=== PATIENT | male | born 1930 | race Hispanic/Latino ===

== ENCOUNTER 2018-05-06 16:20 | Inpatient (IN) | payer MEDICARE ==
[2018-05-06 16:37] VITALS: RESP 18
--- NOTE | 2018-05-06 17:11 | ED PDOC ---
Arrival/HPI - General Historian: Patient - History of Present Illness Narrative History of Present Illness (Text): Pt is a 87 yr old male with PMH HTN who presents with a large left distal posterior forearm skin tear after a fall in his bathroom this past friday. He states that he was seen at [facility] that day and discharged after normal arm Xrays and head CT. He denies any LOC or head injury at the time of the fall. he states that upon his presentation to [facility] his arm was bandaged and he was told it would heal on its own. pt states that today when Dr. Christensen came to his h ouse to see him he was unable to stop the arm from oozing and instructed him to come to the hospital for further evaluation. Patient otherwise any headache, chest pain, shortness of breath, abdominal pain, n/v, f/c, and extremity pain other than in his left arm. Pt additionally denies any sensory or motor deficits in the left hand or arm. 05/06/18 17:30 Front/Back of Body, Lg (Color): 1 - Large skin tear with necrotic skin flap Time/Duration: Prior to Arrival (4 days ) Symptom Onset: Sudden (post fall) Symptom Course: Unchanged Activities at Onset: Other (post fall) Associated Symptoms (Text): erythema and edema of the left arm distal to the skin tear 05/06/18 18:42 <Amanda Blanca - Last Filed: 05/06/18 18:46> <Pratik Lopez - Last Filed: 05/06/18 18:54> - General Chief Complaint: Abnormal Skin Integrity Time Seen by Provider: 05/06/18 16:55 Past Medical History - Provider Review Nursing Documentation Reviewed: Yes - Cardiac Hx Hypertension: Yes - Renal Hx Kidney Stones: Yes - Psychiatric Hx Substance Use: No <Amanda Blanca - Last Filed: 05/06/18 18:46> Family/Social History - Physician Review Nursing Documentation Reviewed: Yes Family/Social History: Unknown Family HX Smoking Status: Former Smoker Hx Alcohol Use: No Hx Substance Use: No <Amanda Blanca - Last Filed: 05/06/18 18:46> Allergies/Home Meds <Amanda Blanca - Last Filed: 05/06/18 18:46> <Pratik Lopez - Last Filed: 05/06/18 18:54> Allergies/Adverse Reactions: Allergies No Known Allergies Allergy (Verified 05/06/18 16:30) Home Medications: Home Meds Medication Instructions Recorded Confirmed Atenolol 50 mg PO DAILY 05/06/18 05/06/18 amLODIPine [Norvasc] 5 mg PO DAILY 05/06/18 05/06/18 Review of Systems - Physician Review All systems were reviewed & negative as marked: Yes - Review of Systems Constitutional: Weight Change (endorses unknown amount of weight loss since his ). absent: Fatigue, Fevers, Night Sweats Respiratory: absent: SOB, Cough Cardiovascular: absent: Chest Pain Gastrointestinal: absent: Abdominal Pain Musculoskeletal: absent: Neck Pain Skin: Other (large skin tear) Neurological: absent: Headache, Dizziness, Gait Changes <Amanda Blanca - Last Filed: 05/06/18 18:46> Physical Exam Vital Signs Reviewed: Yes Vital Signs Temp Pulse Resp BP Pulse Ox 05/06/18 16:27 98.1 F 64 18 154/57 H 100 Temperature: Afebrile Pulse: Regular Respiratory Rate: Normal Appearance: Positive for: Well-Appearing, Non-Toxic, Comfortable, Cachectic Pain Distress: None Mental Status: Positive for: Alert and Oriented X 3 - Systems Exam Head: Present: Atraumatic, Normocephalic Extroacular Muscles: Present: EOMI Mouth: Present: Moist Mucous Membranes Respiratory/Chest: Present: Clear to Auscultation. No: Respiratory Distress, Accessory Muscle Use Cardiovascular: Present: Regular Rate and Rhythm, Normal S1, S2 Abdomen: No: Tenderness, Distention, Peritoneal Signs, Guarding Upper Extremity: Present: Edema, Normal ROM, NORMAL PULSES, Tenderness (over skin tear), Erythema, Neurovascularly Intact, Capillary Refill < 2s, Other (large 13 cm x 4 cm skin tear with necrotic skin flap). No: Cyanosis, Deformity Lower Extremity: Present: Edema (1+ pitting) Neurological: Present: GCS=15, CN II-XII Intact, Speech Normal Skin: Present: Warm, Erythematous (distal left upper extremity), Other (13 cm by 4 cm skin tear with necrotic overlying skin flap, oozing) Psychiatric: Present: Alert, Oriented x 3 <Amanda Blanca - Last Filed: 05/06/18 18:46> Vital Signs Temp Pulse Resp BP Pulse Ox 05/06/18 16:27 98.1 F 64 18 154/57 H 100 <Pratik Lopez - Last Filed: 05/06/18 18:54> Medical Decision Making ED Course and Treatment: impression: large skin tear LUE Plan: labs Dr. Christensen called Dr. Christensen requesting surgical and ID consult (Halle) admit for IV abx 1 dose IV Clindamycin 05/06/18 18:44 - Lab Interpretations Narrative Lab Interpretation (Text): INR normal 1.07 PT 12.2 PTT 27.7 05/06/18 18:49 Interpretation: Abnormal lab values (NA 131 Cl 96, Hgb 12.4 hct 36.5) <Amanda Blanca - Last Filed: 05/06/18 18:46> - Lab Interpretations Lab Results: 05/06/18 17:50 05/06/18 17:50 Lab Results 05/06/18 17:50: Sodium 131 L, Potassium 4.3, Chloride 96 L, Carbon Dioxide 30, Anion Gap 9 L, BUN 15, Creatinine 0.7 L, Est GFR ( Amer) > 60, Est GFR (Non-Af Amer) > 60, Random Glucose 99, Calcium 9.1, Phosphorus 3.6, Magnesium 1.9, Total Bilirubin 0.6, AST 36, ALT 25, Alkaline Phosphatase 85, Total Protein 7.1, Albumin 3.7, Globulin 3.4, Albumin/Globulin Ratio 1.1 05/06/18 17:50: PT 12.2, INR 1.07, APTT 27.7 05/06/18 17:50: WBC 7.3, RBC 3.98, Hgb 12.4 L, Hct 36.5 L, MCV 91.7, MCH 31.2, MCHC 34.0, RDW 13.3, Plt Count 233, MPV 8.7, Gran % 58.0, Lymph % (Auto) 24.0, [place] % (Auto) 13.0 H, Eos % (Auto) 4.6, Baso % (Auto) 0.4, Gran # 4.24, Lymph # (Auto) 1.8, [place] # (Auto) 1.0 H, Eos # (Auto) 0.3, Baso # (Auto) 0.03 - Medication Orders Current Medication Orders: Discontinued Medications Clindamycin Phosphate (Clindamycin 300 Mg/50 Ml-D5w) 300 mg in 50 mls @ 50 mls/hr IV STAT STA; Protocol Stop: 05/06/18 18:44 Last Admin: 05/06/18 17:55 Dose: 50 mls/hr eMAR Start Stop Document 05/06/18 17:55 EWO (Rec: 05/06/18 17:56 EWO [id number]) Intravenous Solution Start Date 05/06/18 Start Time 17:56 End Date 05/06/18 End time 18:56 Total Infusion Time 60 <Pratik Lopez - Last Filed: 05/06/18 18:54> Disposition/Present on Arrival - Present on Arrival Any Indicators Present on Arrival: Yes History of DVT/PE: No History of Uncontrolled Diabetes: No Urinary Catheter: Yes History of Decub. Ulcer: No History Surgical Site Infection Following: None - Disposition Patient Plan: Admission <BlancaAmanda - Last Filed: 05/06/18 18:46> - Present on Arrival Any Indicators Present on Arrival: No History of DVT/PE: No History of Uncontrolled Diabetes: No Urinary Catheter: Yes History of Decub. Ulcer: No - Disposition Have Diagnosis and Disposition been Completed?: Yes Disposition Time: 18:53 Patient Plan: Admission <Pratik Lopez - Last Filed: 05/06/18 18:54> - Disposition Diagnosis: Cellulitis, Hyponatremia Disposition: HOSPITALIZED Condition: GOOD Discharge Instructions (ExitCare): Cellulitis (ED) Referrals: Zen Christensen DO [Primary Care Provider] - Follow up with primary Forms: [employer] (Croatian)
[2018-05-06] MEDS ORDERED: Clindamycin in D5W 300 MG/50 ML BAG IV STA (17:45)
[2018-05-06 18:01] LABS: BASO # 0.03 K/mm3 (0.0-2.0); BASO % 0.4 % (0.0-3.0); EOS # 0.3 (0.0-0.7); EOS % 4.6 % (1.5-5.0); GRAN # 4.24 (1.4-6.5); HEMOGLOBIN 12.4 g/dL (14.0-18.0); LYMPH # 1.8 (1.2-3.4); MEAN CELL VOLUME 91.7 fl (80.0-105.0); MEAN CORPUSCULAR HEMOGLOBIN 31.2 pg (25.0-35.0); MEAN PLATELET VOLUME 8.7 fl (7.0-11.0); RBC 3.98 10^6/uL (3.5-6.1); RED CELL DISTRIBUTION WIDTH 13.3 % (11.5-14.5); WHITE BLOOD COUNT 7.3 10^3/uL (4.5-11.0)
[2018-05-06 18:09] LABS: INR 1.07; PARTIAL THROMBOPLASTIN TIME 27.7 Seconds (25.1-36.5); PROTHROMBIN TIME 12.2 SECONDS (9.4-12.5)
[2018-05-06 18:13] LABS: ALB/GLOB RATIO 1.1 (1.1-1.8); ALBUMIN 3.7 g/dL (3.0-4.8); ALT/SGPT 25 U/L (7-56); AST/SGOT 36 U/L (17-59); BLOOD UREA NITROGEN 15 mg/dL (7-21); CALCIUM 9.1 mg/dL (8.4-10.5); GFR NON-AFRICAN AMERICAN > 60
--- NOTE | 2018-05-06 19:37 | CP.PCM.CON ---
History of Present Illness - History of Present Illness History of Present Illness: Surgery: Dr. Patel CC: LUE skin tear HPI: 87M w. pmh of HTN presents for evaluation of L forearm skin tear. Pt states that 4 days ago he sustained a mechanical fall in his bathroom and was evaluated at [facility] [place] where Xray of arm and CT-H were performed, both were negative and pt was D/C. Pt was seen at his home today by Dr. Christensen and had complaints that his arm was "oozing." Pt was advised to go to ED for further evaluation. In ED pt has complaints of mild pain over the site of injury. He denies any numbness/parethesias. No weakness. PMH: HTN PSH: none Meds: MAR reviewed NKDA Social: Former smoker, to ETOH/drugs Fhx: non-contributory Review of Systems - Review of Systems All systems: reviewed and no additional remarkable complaints except (HPI) Past Patient History - Past Social History Smoking Status: Former Smoker - CARDIAC Hx Hypertension: Yes - RENAL Hx Kidney Stones: Yes - PSYCHIATRIC Hx Substance Use: No - SURGICAL HISTORY Hx Surgeries: No Meds Allergies/Adverse Reactions: Allergies Allergy/AdvReac Type Severity Reaction Status Date / Time No Known Allergies Allergy Verified 05/06/18 16:30 Physical Exam - Constitutional Appears: Non-toxic, No Acute Distress - Head Exam Head Exam: ATRAUMATIC, NORMOCEPHALIC - Eye Exam Eye Exam: EOMI - ENT Exam ENT Exam: Mucous Membranes Moist - Neck Exam Neck exam: Positive for: Full Rom - Respiratory Exam Respiratory Exam: NORMAL BREATHING PATTERN. absent: Accessory Muscle Use, Respiratory Distress - Cardiovascular Exam Cardiovascular Exam: REGULAR RHYTHM - GI/Abdominal Exam GI & Abdominal Exam: Soft. absent: Tenderness - Extremities Exam Extremities exam: Negative for: calf tenderness, pedal edema - Expanded Upper Extremities Exam Left Forearm Wrist exam: abrasion (Skin tear dorsal aspect of L forearm ~15x5cm with surrounding erythema and serosang fluid noted on wound bed) Neuro motor exam: finger 2-5 abduction intact, thumb abduction, thumb IP flexion intact, thumb opposition intact, wrist extension intact Vascular exam: radial pulse, normal capillary refill - Neurological Exam Neurological exam: Normal Gait, Oriented x3 - Psychiatric Exam Psychiatric exam: Normal Affect, Normal Mood Results - Vital Signs Recent Vital Signs: Last Vital Signs Temp 98.1 F 05/06/18 16:27 Pulse 64 05/06/18 16:27 Resp 18 05/06/18 16:27 BP 154/57 H 05/06/18 16:27 Pulse Ox 100 05/06/18 16:27 - Labs Result Diagrams: 05/06/18 17:50 05/06/18 17:50 Labs: Laboratory Results - last 24 hr 05/06/18 05/06/18 05/06/18 17:50 17:50 17:50 WBC 7.3 RBC 3.98 Hgb 12.4 L Hct 36.5 L MCV 91.7 MCH 31.2 MCHC 34.0 RDW 13.3 Plt Count 233 MPV 8.7 Gran % 58.0 Lymph % (Auto) 24.0 [place] % (Auto) 13.0 H Eos % (Auto) 4.6 Baso % (Auto) 0.4 Gran # 4.24 Lymph # (Auto) 1.8 [place] # (Auto) 1.0 H Eos # (Auto) 0.3 Baso # (Auto) 0.03 PT 12.2 INR 1.07 APTT 27.7 Sodium 131 L Potassium 4.3 Chloride 96 L Carbon Dioxide 30 Anion Gap 9 L BUN 15 Creatinine 0.7 L Est GFR ( Amer) > 60 Est GFR (Non-Af Amer) > 60 Random Glucose 99 Calcium 9.1 Phosphorus 3.6 Magnesium 1.9 Total Bilirubin 0.6 AST 36 ALT 25 Alkaline Phosphatase 85 Total Protein 7.1 Albumin 3.7 Globulin 3.4 Albumin/Globulin Ratio 1.1 Assessment & Plan - Assessment and Plan (Free Text) Assessment: 87M w. skin tear L forearm and cellulitis -Daily dressing changes w. silvadene and optifoam dressings -abx -No surgical intervention at this time -d/w attending Vineetmaitis PGY4
[2018-05-06] MEDS ORDERED: Sodium Chloride 0.9% 100 ML IV STA (20:08)
[2018-05-07 04:25] VITALS: BMI 20.3
--- NOTE | 2018-05-07 09:08 | CP.PCM.PN ---
Subjective - Date & Time of Evaluation Date of Evaluation: 05/07/18 Time of Evaluation: 09:03 - Subjective Subjective: Yair Franco, PGY1 Surgery Progress Note for Dr. Patel Patient was seen and examined at bedside. Denies cp, sob, pain at the left extremity. No adverse overnight events. Vital signs stable. Dressing was changed today, silvadene was applied and left forearm was wrapped in JACQUELINE bandage. Objective - Vital Signs/Intake and Output Vital Signs (last 24 hours): Temp Pulse Resp BP Pulse Ox 98.5 F 56 L 18 128/67 96 05/07/18 06:00 05/07/18 06:00 05/07/18 06:00 05/07/18 06:00 05/07/18 06:00 Intake and Output: 05/07/18 05/07/18 06:59 18:59 Intake Total 250 Balance 250 - Medications Medications: Current Medications Silver Sulfadiazine (Silvadene 1% 25 Gm) 0 gm TP DAILY NAY - Labs Labs: 05/06/18 17:50 05/06/18 17:50 PT 12.2 SECONDS (9.4-12.5) 05/06/18 17:50 INR 1.07 05/06/18 17:50 APTT 27.7 Seconds (25.1-36.5) 05/06/18 17:50 - Constitutional Appears: No Acute Distress - Head Exam Head Exam: ATRAUMATIC, NORMAL INSPECTION, NORMOCEPHALIC - Eye Exam Eye Exam: EOMI, Normal appearance - ENT Exam ENT Exam: Mucous Membranes Moist - Respiratory Exam Respiratory Exam: Clear to Ausculation Bilateral. absent: Rales, Rhonchi, Wh eezes - Cardiovascular Exam Cardiovascular Exam: RRR - GI/Abdominal Exam GI & Abdominal Exam: Soft, Normal Bowel Sounds. absent: Tenderness - Extremities Exam Extremities Exam: Full ROM, Normal Capillary Refill Additional comments: Skin tear at the dorsal aspect of the left forearm, approximately 15x5cm with serosanguinous fluid noted. Silvadene applied, dressing placed over with JACQUELINE bandage in place. Distal pulses and motor responses of the hand intact. - Neurological Exam Neurological Exam: Alert, Oriented x3 - Psychiatric Exam Psychiatric exam: Normal Affect, Normal Mood - Skin Skin Exam: Dry, Intact, Normal Color, Warm Assessment and Plan - Assessment and Plan (Free Text) Assessment: 87M with skin tear L forearm and cellulitis Plan: - continue daily dressing changes with silvadene and optifoam dressings - c/w antibiotics as per ID recs - No surgical intervention at this time - Further recommendations as per Dr. Patel
[2018-05-07 09:43] LABS: BLOOD UREA NITROGEN 11 mg/dL (7-21); CALCIUM 8.9 mg/dL (8.4-10.5); GFR NON-AFRICAN AMERICAN > 60
[2018-05-07] MEDS ORDERED: Sodium Chloride 0.45% 1,000 ML IV SCH (10:00)
[2018-05-07] MEDS: Silver Sulfadiazine 1% Cream (25 gm) TP SCH (10:15)
--- NOTE | 2018-05-07 11:31 | CP.PCM.APN ---
Subjective - Date & Time of Evaluation Date of Evaluation: 05/07/18 Time of Evaluation: 11:28 - Subjective Subjective: Pt seen and examined at bedside. He is in no acute distress. Objective - Vital Signs/Intake and Output Vital Signs (last 24 hours): Temp Pulse Resp BP Pulse Ox 98.5 F 56 L 18 144/63 96 05/07/18 06:00 05/07/18 11:24 05/07/18 06:00 05/07/18 11:24 05/07/18 06:00 Intake and Output: 05/07/18 05/07/18 06:59 18:59 Intake Total 250 Balance 250 - Medications Medications: Current Medications Amlodipine Besylate (Norvasc) 5 mg PO DAILY [facility] Last Admin: 05/07/18 10:52 Dose: 5 mg Atenolol (Tenormin) 50 mg PO DAILY [facility] Last Admin: 05/07/18 11:24 Dose: Not Given Sodium Chloride (Sodium Chloride 0.45%) 1,000 mls @ 40 mls/hr IV .Q24H [facility] Last Admin: 05/07/18 10:40 Dose: 40 mls/hr Silver Sulfadiazine (Silvadene 1% 25 Gm) 0 gm TP DAILY [facility] Last Admin: 05/07/18 10:15 Dose: 3 gm - Labs Labs: 05/06/18 17:50 05/07/18 08:20 PT 12.2 SECONDS (9.4-12.5) 05/06/18 17:50 INR 1.07 05/06/18 17:50 APTT 27.7 Seconds (25.1-36.5) 05/06/18 17:50 - Constitutional Appears: Well, No Acute Distress - Head Exam Head Exam: NORMAL INSPECTION - Eye Exam Eye Exam: Normal appearance - ENT Exam ENT Exam: Mucous Membranes Moist - Neck Exam Neck Exam: Full ROM - Respiratory Exam Respiratory Exam: Clear to Ausculation Bilateral, NORMAL BREATHING PATTERN - Cardiovascular Exam Cardiovascular Exam: REGULAR RHYTHM, +S1, +S2 - GI/Abdominal Exam GI & Abdominal Exam: Soft, Normal Bowel Sounds - Rectal Exam Rectal Exam: Deferred - Exam Additional comments: +sommers w/ clear yellow urine - Extremities Exam Additional comments: L forearm with wound, no active drainage or foul odor noted. - Neurological Exam Neurological Exam: Alert, Awake, Oriented x3 Assessment and Plan - Assessment and Plan (Free Text) Assessment: Pt is an 87 y.o. male with pmhx of HTN presented in ED due to large L distal p osterior forearm skin tear w/ oozing. Plan: Local wound care to L forearm wound per surgery recs Surgery, ID and Uro (sommers eval) on consult Meds per MAR Physical therapy pending Will continue to follow
--- NOTE | 2018-05-07 12:43 | HP ---
DATE OF EXAM: 05/07/2018 HISTORY OF PRESENT ILLNESS: I did a house call on Kyler yesterday, he was in the emergency room at [facility] where he fell on the bathroom. His left arm has got at least of 27 cm X 10 cm gash with skin covering it. They bandaged it and sent him home and came to the house, took about 20 minutes to get this eschar bandage of his left arm and was bleeding the whole time. I felt he should have gone to the emergency room. He did not want to go, but when I told him he was bleeding too much, I said he have to go, we cannot stop the bleeding at his house and he finally agreed. We called 911, got him to [facility] for his left arm huge skin tear from a fall. He did not lose consciousness and a left arm looked cellulitic, oozing blood, findings to have some cautery and a large area of skin has to come off. He is 87-year-old white male known from many years. He has got a left arm skin abrasion and avulsion and bleeding. PAST MEDICAL HISTORY: Hypertension. He has a Ariza catheter in. He has had kidney stones. FAMILY HISTORY: Unknown family history. SOCIAL HISTORY: Former smoker. No alcohol. No drinking. ALLERGIES: NO KNOWN DRUG ALLERGIES. MEDICATIONS: He is on atenolol and Norvasc. He has very difficulty walking, walks with the walker, very weak. I tried to do physical therapy in his house in the past, he refused but I think he needs it now that he is falling. REVIEW OF SYSTEMS: He has lost weight since his , he is fatigued. His left arm is soaked through with bleeding. No shortness of breath or cough. No chest pain or palpitations. No abdominal pain, nausea, vomiting or constipation. No diarrhea. No back pain. No neck pain. He is got a large left arm skin tear, the entire forearm. No headache. No dizziness. PHYSICAL EXAMINATION: GENERAL: He is well appearing, nontoxic and comfortable, but he is weak, he is walking very slowly, he is very weak getting up from a chair. I think he needs [facility] TCU. Alert and oriented x3. VITAL SIGNS: He has 98.1 temp, 64 pulse, 18 respiratory rate, 164/57 blood pressure and 100% O2 sat. HEENT: Head is atraumatic and normocephalic. Extraocular muscles are intact. Throat is dry. NECK: Supple. HEART: Regular rate. Normal, S1 and S2. LUNGS: Decreased breath sounds, but clear to auscultation. ABDOMEN: Soft and nontender. Positive bowel sounds. No guarding. No rebound or CVA tenderness. EXTREMITIES: No edema. There is a large 13 X 4 cm skin flap that is necrotic and bleeding. Trace edema of the arm. NEUROLOGIC: GCS is 15. Cranial nerves II through XII grossly intact. Normal speech. The left arm is also warm, it looks infected. Alert and oriented x3. LYMPHS: Thyroid midline. No palpable lymphadenopathy. LABORATORY DATA: He had multiple tests done. He has 7.3 white count, 12.4 hemoglobin, 36.5 hematocrit and 233 platelets. INR is 1.07. He has a sodium 132, potassium 4.4, BUN is 11, creatinine is 0.6, GFR is greater than 60, sugar is 123, calcium is 8.9, phosphorous 3.6, magnesium 1.9, total bilirubin is 0.6, AST is 36, ALT is 25, alk phos 85 and total protein 7.1. IMPRESSION AND PLAN: He will have a consult with surgery to remove that skin. Infectious Disease, IV fluids, clindamycin, silver sulfadiazine cream, back on his amlodipine, Tenormin, physical therapy, [facility] versus TCU and he has got multiple issues in the left arm large avulsion with bleeding looks cellulitic, fall. Zen Christensen DO MTDD
--- NOTE | 2018-05-07 15:25 | CON ---
DATE: 05/07/2018 The patient is in bed, seen earlier today in room 576, bed 2. CHIEF COMPLAINT: Left arm injury times several days. HISTORY OF PRESENT ILLNESS: This is an 87-year-old male, who has past medical history for hypertension, ex-smoker, history of kidney stones, who is admitted through the emergency room because after a fall he has developed arm laceration. This occurred 4 days ago, fall. He did not have any head injury, he was not unconscious, and he did not have any fevers, any chills. No nausea. No vomiting. No chest pain or abdominal pain. REVIEW OF SYSTEMS: Reveals the patient has 12-point review systems performed. PAST MEDICAL HISTORY: Significant for hypertension, kidney stones, and ex-smoker. PAST SURGICAL HISTORY: States he has not had any surgery in the past. ALLERGIES: THE PATIENT HAS NO KNOWN ALLERGIES. MEDICATIONS: Medications at home include atenolol and amlodipine. SOCIAL HISTORY: He lives with his son, who is 61 years old, and he has no travel. PHYSICAL EXAMINATION: GENERAL: The patient is in bed, answering questions. He is awake and alert. Mental status is good. VITAL SIGNS: Temperature of 98, heart rate of 59, respiratory rate of 18, blood pressure is 130/60. HEENT: Examination of HEENT is unremarkable. NECK: Supple. LUNGS: Have decreased breath sounds. HEART: Normal S1, S2. ABDOMEN: Soft. EXTREMITIES: Examination of the left arm reveals a significant laceration to his necrotic tissue and lower so aspect of his arm, and no evidence of infection. LABORATORY DATA: Laboratory examination reveals a white count of 7.3, hemoglobin of 12. Chemistries are BUN of 11, creatinine of 0.6. Microbiology is pending. ASSESSMENT AND PLAN: This is an 87-year-old male with left arm laceration. No indication for antibiotics. Local wound care. Close monitoring. He does have a potential of becoming superinfection, but it is not so at this time. We will follow with you. Ed Griggs MD
[2018-05-08 07:37] LABS: MEAN CELL VOLUME 90.8 fl (80.0-105.0); MEAN CORPUSCULAR HEMOGLOBIN 30.6 pg (25.0-35.0); MEAN CORPUSCULAR HGB CONC 33.7 g/dl (31.0-37.0); MEAN PLATELET VOLUME 8.9 fl (7.0-11.0); RBC 4.25 10^6/uL (3.5-6.1); RED CELL DISTRIBUTION WIDTH 13.1 % (11.5-14.5); WHITE BLOOD COUNT 6.5 10^3/uL (4.5-11.0)
--- NOTE | 2018-05-08 07:55 | PCM.URO ---
Urology Progress Note - Objective Lab Studies: Reviewed (futher plans to follow when we have further information thanks) Lab Results Last 24 Hours: Laboratory Results - last 24 hr 05/07/18 05/08/18 08:20 07:00 WBC 6.5 RBC 4.25 Hgb 13.0 L Hct 38.6 L MCV 90.8 MCH 30.6 MCHC 33.7 RDW 13.1 Plt Count 237 MPV 8.9 Sodium 132 Potassium 4.4 Chloride 99 Carbon Dioxide 27 Anion Gap 11 BUN 11 Creatinine 0.6 L Est GFR ( Amer) > 60 Est GFR (Non-Af Amer) > 60 Random Glucose 123 H Calcium 8.9 Intake & Output: Intake & Output 05/07/18 05/08/18 05/08/18 18:59 06:59 18:59 Intake Total 600 180 Output Total 700 500 Balance -100 -320 Intake: IV 400 Right Forearm 400 Oral 200 180 Output: Urine 700 500 Urine, Voided 700 500 Vital Signs: Vital Signs - 24 hr 05/07/18 05/07/18 05/07/18 10:52 11:24 14:00 Temperature 99.4 F Pulse Rate 56 L 56 L 53 L Respiratory 18 Rate Blood Pressure 144/63 144/63 120/54 L O2 Sat by Pulse Oximetry 05/07/18 22:34 Temperature 99.7 F H Pulse Rate 54 L Respiratory 18 Rate Blood Pressure 114/57 L O2 Sat by Pulse 95 Oximetry
[2018-05-08 08:07] LABS: ALBUMIN 3.4 g/dL (3.0-4.8); ALT/SGPT 23 U/L (7-56); AST/SGOT 35 U/L (17-59); BLOOD UREA NITROGEN 17 mg/dL (7-21); CALCIUM 8.8 mg/dL (8.4-10.5); GFR NON-AFRICAN AMERICAN > 60
--- NOTE | 2018-05-08 08:56 | CP.PCM.PN ---
Subjective - Date & Time of Evaluation Date of Evaluation: 05/08/18 Time of Evaluation: 08:49 - Subjective Subjective: Yair Franco, PGY1 Surgery Progress Note for Dr. Patel Patient was seen and examined at bedside this morning. Vital signs stable. Patient denies n/v/d, fevers, chills. No adverse overnight events. Dressing was changed. Objective - Vital Signs/Intake and Output Vital Signs (last 24 hours): Temp Pulse Resp BP Pulse Ox 99.7 F H 54 L 18 114/57 L 95 05/07/18 22:34 05/07/18 22:34 05/07/18 22:34 05/07/18 22:34 05/07/18 22:34 Intake and Output: 05/08/18 05/08/18 06:59 18:59 Intake Total 180 Output Total 500 Balance -320 - Medications Medications: Current Medications Amlodipine Besylate (Norvasc) 5 mg PO DAILY [facility] Last Admin: 05/07/18 10:52 Dose: 5 mg Atenolol (Tenormin) 50 mg PO DAILY [facility] Last Admin: 05/07/18 11:24 Dose: Not Given Sodium Chloride (Sodium Chloride 0.45%) 1,000 mls @ 40 mls/hr IV .Q24H [facility] Last Admin: 05/07/18 10:40 Dose: 40 mls/hr Silver Sulfadiazine (Silvadene 1% 25 Gm) 0 gm TP DAILY [facility] Last Admin: 05/07/18 10:15 Dose: 3 gm - Labs Labs: 05/08/18 07:00 05/08/18 07:00 PT 12.2 SECONDS (9.4-12.5) 05/06/18 17:50 INR 1.07 05/06/18 17:50 APTT 27.7 Seconds (25.1-36.5) 05/06/18 17:50 - Constitutional Appears: No Acute Distress - Head Exam Head Exam: ATRAUMATIC, NORMAL INSPECTION, NORMOCEPHALIC - Eye Exam Eye Exam: EOMI, Normal appearance - Respiratory Exam Respiratory Exam: Clear to Ausculation Bilateral. absent: Rales, Rhonchi, Wheezes - Cardiovascular Exam Cardiovascular Exam: RRR - GI/Abdominal Exam GI & Abdominal Exam: Soft, Normal Bowel Sounds - Extremities Exam Extremities Exam: Full ROM Additional comments: Skin tear at the dorsal aspect of the left forearm, approximately 15x5cm with minimal serosanguinous fluid noted. Silvadene cream was applied, dressing placed over with JACQUELINE bandage in place. Distal pulses and motor responses of the hand intact. - Neurological Exam Neurological Exam: Alert, Awake, Oriented x3 - Psychiatric Exam Psychiatric exam: Normal Affect, Normal Mood - Skin Skin Exam: Dry, Intact, Normal Color, Warm Assessment and Plan - Assessment and Plan (Free Text) Assessment: 87M with skin tear L forearm and cellulitis Plan: - c/w daily dressing changes with silvadene and optifoam dressings - no indications for antibiotics as per ID recs - will continue to follow patient in TCU - Further recommendations as per Dr. Patel
[2018-05-08] MEDS: Silver Sulfadiazine 1% Cream (25 gm) TP SCH (09:19)
--- NOTE | 2018-05-08 09:50 | CP.PCM.PN ---
<Jesús Smith - Last Filed: 05/08/18 14:07> Subjective - Date & Time of Evaluation Date of Evaluation: 05/08/18 Time of Evaluation: 09:00 - Subjective Subjective: Patient seen and examined at beside. No acute events overnight. Minimal pain in left arm. Denies chest pain, shortness of breath, nausea, vomiting, diarrhea, fever, chills. Objective - Vital Signs/Intake and Output Vital Signs (last 24 hours): Temp Pulse Resp BP Pulse Ox 99.7 F H 54 L 18 114/57 L 95 05/07/18 22:34 05/07/18 22:34 05/07/18 22:34 05/07/18 22:34 05/07/18 22:34 Intake and Output: 05/08/18 05/08/18 06:59 18:59 Intake Total 180 Output Total 500 Balance -320 - Medications Medications: Current Medications Amlodipine Besylate (Norvasc) 5 mg PO DAILY [facility] Last Admin: 05/08/18 09:18 Dose: 5 mg Atenolol (Tenormin) 50 mg PO DAILY [facility] Last Admin: 05/08/18 09:18 Dose: 50 mg Sodium Chloride (Sodium Chloride 0.45%) 1,000 mls @ 40 mls/hr IV .Q24H [facility] Last Admin: 05/07/18 10:40 Dose: 40 mls/hr Silver Sulfadiazine (Silvadene 1% 25 Gm) 0 gm TP DAILY [facility] Last Admin: 05/08/18 09:19 Dose: 25 gm - Labs Labs: 05/08/18 07:00 05/08/18 07:00 PT 12.2 SECONDS (9.4-12.5) 05/06/18 17:50 INR 1.07 05/06/18 17:50 APTT 27.7 Seconds (25.1-36.5) 05/06/18 17:50 - Constitutional Appears: Non-toxic, No Acute Distress - Head Exam Head Exam: ATRAUMATIC, NORMAL INSPECTION, NORMOCEPHALIC - ENT Exam ENT Exam: Mucous Membranes Moist - Respiratory Exam Respiratory Exam: Clear to Ausculation Bilateral, NORMAL BREATHING PATTERN - Cardiovascular Exam Cardiovascular Exam: RRR, +S1, +S2 - GI/Abdominal Exam GI & Abdominal Exam: Soft, Normal Bowel Sounds. absent: Guarding, Tenderness, Rebound - Extremities Exam Extremities Exam: absent: Pedal Edema Additional comments: Left arm bandaged. No drainage or erythema. - Neurological Exam Neurological Exam: Alert, Awake, CN II-XII Intact - Psychiatric Exam Psychiatric exam: Normal Affect, Normal Mood - Skin Skin Exam: Intact, Normal Color, Warm Assessment and Plan - Assessment and Plan (Free Text) Plan: Left arm laceration Hx of HTN Hx of kidney stones Former smoker Plan Afebrile, no leukocytosis No indications for antibiotics Local wound care Continue current medical management Luis, PGY-3 <Miguel Douglas - Last Filed: 05/08/18 19:42> Objective - Vital Signs/Intake and Output Vital Signs (last 24 hours): Temp Pulse Resp BP Pulse Ox 98.3 F 58 L 18 139/63 97 05/08/18 14:00 05/08/18 14:00 05/08/18 14:00 05/08/18 14:00 05/08/18 14:00 - Medications Medications: Current Medications Acetaminophen (Tylenol 325mg Tab) 650 mg PO Q6H PRN PRN Reason: Fever >100.4 F Amlodipine Besylate (Norvasc) 5 mg PO DAILY [facility] Last Admin: 05/08/18 09:18 Dose: 5 mg Atenolol (Tenormin) 50 mg PO DAILY [facility] Last Admin: 05/08/18 09:18 Dose: 50 mg Sodium Chloride (Sodium Chloride 0.45%) 1,000 mls @ 75 mls/hr IV .[id number] [facility] Silver Sulfadiazine (Silvadene 1% 25 Gm) 0 gm TP DAILY [facility] Last Admin: 05/08/18 09:19 Dose: 25 gm - Labs Labs: 05/08/18 07:00 05/08/18 07:00 PT 12.2 SECONDS (9.4-12.5) 05/06/18 17:50 INR 1.07 05/06/18 17:50 APTT 27.7 Seconds (25.1-36.5) 05/06/18 17:50 Assessment and Plan - Assessment and Plan (Free Text) Plan: Infectious diseases Attending Physician Attestation Patient seen and examined, discussed with medical psychotherapist. I have reviewed the patient's history of present illness, past medical, social, personal and family histories, pertinent physical exam findings, course so far in this hospital admission, pertinent laboratory and imaging results. I agree with the above findings, assessment and plan. In addition, continue to monitor off antibiotics in this patient with left arm laceration without evidence of infection.
--- NOTE | 2018-05-08 13:02 | CON ---
DATE: 05/07/2018 UROLOGY CONSULTATION See the chart for further details regarding the consult. REASON FOR CONSULTATION: Urinary retention. HISTORY OF PRESENT ILLNESS: The patient 87-year-old being admitted to the hospital with hyponatremia and cellulitis after sustaining a fall. From Urology standpoint, he has had a Ariza catheter inserted in 08/2017. He is under the care of Dr. Kyle Baker. See the plans listed below. PAST MEDICAL AND SURGICAL HISTORY: As listed. PHYSICAL EXAMINATION: ABDOMEN: Soft. Ariza catheter was replaced, draining clear yellow urine. DIAGNOSIS: Urinary retention. ASSESSMENT, PLAN, AND SUMMARY: Very pleasant gentleman. I discussed the options with the patient. Dr. Baker had recommended apparently surgical intervention. The patient was not sure exactly what surgery was done, but he was apparently waiting for medical clearance. He also offered the patient just to keep changing the Ariza catheter on . I placed the patient that most seen like get reasonable medical options that he would need medical clearance from Dr. Mayo. I did offer him one other option about a micro therapy, which is an office based procedure which does not require anesthesia or stopping blood thinners. I also explained in great detail that this only helps time. i start explaining that in general Dr. Baker is able to help people out. I would encourage the patient to return to Dr. Baker when he is out of the hospital once his cellulitis and his hyponatremia resolved. I discussed with the patient various options. PLAN: From a Urology standpoint for now: 1. Maintain the Ariza catheter. 2. Get further test . The timeline needs to be discussed. would be as an outpatient. Thank you for the Urology consult on Mr. Brunson. Rock Zabala MD
--- NOTE | 2018-05-08 14:19 | PN ---
DATE: 05/08/2018 SUBJECTIVE: He is sitting in a chair. He is trying to feed himself. Ariza catheter is in place. He has got IV fluids running. His left arm is bandaged from a very large avulsion. He is weak. He had fallen. PHYSICAL EXAMINATION: VITAL SIGNS: He has 99.7 temperature, 54 pulse, 114/57 blood pressure, 18 respirations, and 95% O2 saturation. HEENT: Atraumatic, normocephalic. HEART: Regular rate. LUNGS: Decreased breath sounds, but clear. ABDOMEN: Soft. EXTREMITIES: Thin, no edema, but weak. The left arm is bandaged. LABORATORY DATA: He has a 6.5 white count, 13 hemoglobin, 38.6 hematocrit with 237 platelets. INR is 1.07, 129 sodium, 4.4 potassium. I am going to change his IV fluids around. BUN 17, creatinine 0.7, GFR is greater than 60, sugar is 84, calcium is 8.8, total bilirubin is 0.9. AST is 35, ALT is 23, alkaline phosphatase 87, total protein 6.7. He is being seen by Infectious Disease and Urology. Urology has not given any information in his note. IMPRESSION: Left forearm skin tear, cellulitis, with Silvadene and Iodoform dressing. Recommendation from Surgery is to continue intravenous antibiotics. Infectious Disease stopped the antibiotics. PLAN: Get him to TCU as per recommendation from physical therapist tomorrow and to monitor overnight with plan to discharge him tomorrow to physical therapy. The patient is Kyler Brunson who had a fall, head trauma, left arm huge avulsion, skin tear with bleeding and cellulitis. Zen Christensen DO MTDChepe
--- NOTE | 2018-05-08 16:12 | CP.PCM.PCO ---
Physician Communication Note - Physician Communication Note Physician Communication Note: patient stable,no complaints,accepted to [facility] for [facility]hab Friday,after 2 night
[2018-05-08] MEDS ORDERED: Sodium Chloride 0.45% 1,000 ML IV SCH (16:40)
[2018-05-09 07:37] LABS: HEMOGLOBIN 12.5 g/dL (14.0-18.0); MEAN CELL VOLUME 90.5 fl (80.0-105.0); MEAN CORPUSCULAR HEMOGLOBIN 30.5 pg (25.0-35.0); MEAN CORPUSCULAR HGB CONC 33.7 g/dl (31.0-37.0); MEAN PLATELET VOLUME 9.3 fl (7.0-11.0); RBC 4.1 10^6/uL (3.5-6.1); RED CELL DISTRIBUTION WIDTH 12.8 % (11.5-14.5); WHITE BLOOD COUNT 6.3 10^3/uL (4.5-11.0)
[2018-05-09 07:55] LABS: ALBUMIN 3.1 g/dL (3.0-4.8); ALT/SGPT 22 U/L (7-56); AST/SGOT 28 U/L (17-59); BLOOD UREA NITROGEN 16 mg/dL (7-21); CALCIUM 8.5 mg/dL (8.4-10.5); GFR NON-AFRICAN AMERICAN > 60
[2018-05-09] MEDS: Silver Sulfadiazine 1% Cream (25 gm) TP SCH (10:02)
--- NOTE | 2018-05-09 11:33 | PN ---
DATE: 05/09/2018 SUBJECTIVE: He is resting comfortably in bed. He is looking forward to going to the Transitional Care Unit for physical therapy and further treatment of his left arm. He also has a Ariza catheter. He is on IV fluids, Norvasc, silver sulfadiazine cream, Tenormin, Tylenol. He needs physical therapy before he can go home and care of the left arm large abrasion, avulsion and bleeding. PHYSICAL EXAMINATION: VITAL SIGNS: Temperature 98.3, 55 pulse, 137/59 blood pressure, 18 respiratory rate, 99% O2 sat on room air. HEAD: Atraumatic, normocephalic. HEART: Regular rate. LUNGS: Decreased breath sounds. ABDOMEN: Soft. EXTREMITIES: No edema. Weak extremities. Got a Ariza catheter in place. The left arm is completely wrapped up from a severe avulsion and bleeding. LABORATORY DATA: He has a 6.3 white count, 12.5 hemoglobin, 37.1 hematocrit with 232 platelets. Sodium 129, potassium 4.2, BUN 16, creatinine 0.5, GFR greater than 60, sugar is 107, calcium 8.5, total bili is 0.9, AST is 20, ALT is 22, alk phos 71, total protein 6.2. RECOMMENDATION: Check his labs tomorrow. Tomorrow get him to TCU as per TCU recommendations. Continue with good skin care of the left arm, physical therapy, get out of bed to chair. Encouraged him to eat. Continue with IV fluids. Zen Christensen DO MTDD
[2018-05-09] MEDS: Sodium Chloride 0.9% 1,000 ML IV SCH (11:58)
[2018-05-09 22:13] VITALS: O2SAT 99
--- NOTE | 2018-05-09 23:30 | PN ---
DATE: 05/09/2018 SUBJECTIVE: The patient is in bed, in no acute distress, nontoxic. No fever. He is doing better. He is awake and alert this morning. PHYSICAL EXAMINATION VITAL SIGNS: Temperature of 98, blood pressure is 120/70, and respiratory rate of 16. HEENT: Unremarkable. NECK: Supple. LUNGS: Have decreased breath sounds. HEART: Normal S1, S2. LABORATORY DATA: Reveals a white count of 6.3, hemoglobin of 12. Chemistries are noted. Review of microbiology reveals no microbiology. ASSESSMENT AND PLAN: This is an 87-year-old male who was seen earlier this morning in 576, bed 2, status post fall with a left arm laceration, kidney stones, ex-smoker, hypertension. No evidence of infection. Continue local wound care. Off of antibiotics. Need for physical therapy. Ed Griggs MD
[2018-05-10 08:03] LABS: HEMOGLOBIN 13.5 g/dL (14.0-18.0); MEAN CELL VOLUME 91.3 fl (80.0-105.0); MEAN CORPUSCULAR HEMOGLOBIN 30.8 pg (25.0-35.0); MEAN CORPUSCULAR HGB CONC 33.8 g/dl (31.0-37.0); RBC 4.38 10^6/uL (3.5-6.1); RED CELL DISTRIBUTION WIDTH 12.9 % (11.5-14.5); WHITE BLOOD COUNT 7.6 10^3/uL (4.5-11.0)
[2018-05-10 08:23] LABS: ALBUMIN 3.6 g/dL (3.0-4.8); ALT/SGPT 24 U/L (7-56); AST/SGOT 33 U/L (17-59); BLOOD UREA NITROGEN 14 mg/dL (7-21); CALCIUM 8.9 mg/dL (8.4-10.5); GFR NON-AFRICAN AMERICAN > 60
[2018-05-10] MEDS: Silver Sulfadiazine 1% Cream (25 gm) TP SCH (11:16)
[2018-05-10] MEDS: Sodium Chloride 0.9% 1,000 ML IV SCH (15:51)
[2018-05-10 16:02] VITALS: BP 135/66; PULSE 97; TEMP 99.5
--- NOTE | 2018-05-10 16:59 | CP.PCM.PN ---
Subjective - Date & Time of Evaluation Date of Evaluation: 05/10/18 Time of Evaluation: 16:57 - Subjective Subjective: Surgery: Dr. Patel Pt seen and examined. No complaints A/P: 87M w. L forearm skin tear -Necrotic flap debrided at bedside -c/w silvadene daily -d/w attending Zemonserratitis PGY4 Objective - Vital Signs/Intake and Output Vital Signs (last 24 hours): Temp Pulse Resp BP Pulse Ox 99.5 F 97 H 18 135/66 99 05/10/18 14:00 05/10/18 14:00 05/10/18 14:00 05/10/18 14:00 05/10/18 14:00 - Medications Medications: Current Medications Acetaminophen (Tylenol 325mg Tab) 650 mg PO Q6H PRN PRN Reason: Fever >100.4 F Amlodipine Besylate (Norvasc) 5 mg PO DAILY [facility] Last Admin: 05/10/18 11:18 Dose: 5 mg Sodium Chloride (Sodium Chloride 0.9%) 1,000 mls @ 75 mls/hr IV .[id number] [facility] Last Admin: 05/10/18 15:51 Dose: 75 mls/hr Silver Sulfadiazine (Silvadene 1% 25 Gm) 0 gm TP DAILY [facility] Last Admin: 05/10/18 11:16 Dose: 1 gm - Labs Labs: 05/10/18 07:00 05/10/18 07:00 PT 12.2 SECONDS (9.4-12.5) 05/06/18 17:50 INR 1.07 05/06/18 17:50 APTT 27.7 Seconds (25.1-36.5) 05/06/18 17:50
--- NOTE | 2018-05-10 23:30 | DS ---
HISTORY OF PRESENT ILLNESS: He is resting comfortably in bed. He needs family to help him be fed due to his bad arthritis. I will put him on some Celebrex to see if that might help a little bit. We do not have that on formulary. We will need to have some assistance. He needs physical therapy. He is here with a severe left arm avulsion, tear with bleeding, which is finally stopped, and he will have physical therapy and skin care and Ariza catheter treatment at the TCU as recommended by Physical Therapy. PHYSICAL EXAMINATION: VITAL SIGNS: A 98.4 temp, 64 pulse, 144/65 blood pressure, 18 respiratory rate, and 99% sat on room air. HEENT: Head is atraumatic, normocephalic. Throat is moist. NECK: Supple. HEART: Regular rate. LUNGS: Decreased breath sounds, but clear. Poor inspiration. ABDOMEN: Soft and nontender. Positive bowel sounds. EXTREMITIES: Lower extremities are mildly contracted, difficult to walk. There is Ariza catheter in place. The left arm has a large skin avulsion, maybe 10 inches x 4 inches wide, which finally stopped bleeding. He has a bandage on it, we will get that taken care of it also at TCU by Physical Therapy. MEDICATIONS: He is going to be on Norvasc, Silvadene Cream, IV fluids, and Tylenol. LABORATORY DATA: He has a 7.6 white count, 13.5 hemoglobin, 40 hematocrit with 270 platelets. INR is 1.07. He has 133 sodium, potassium 4.3, BUN 14, creatinine 0.6, GFR greater than 60, sugar is 94, calcium is 8.9. Total bilirubin is 0.7, AST is 33, ALT is 24, alk phos 89, total protein is 7.2. He is being discharged to the TCU today. He is being seen by Infectious Disease, Urology and Surgery. Zen Christensen DO
--- NOTE | 2018-05-11 09:13 | PN ---
DATE: 05/10/2018 SUBJECTIVE: The patient was seen early this morning, in no acute distress, nontoxic. PHYSICAL EXAMINATION: VITAL SIGNS: Temperature is 99, blood pressure is 135/60, respiratory rate of 18. HEENT: Unremarkable. NECK: Supple. LUNGS: Decreased breath sounds. HEART: Normal, S1, S2. ABDOMEN: Soft. LABORATORY DATA: Examination reveals a white count of 7.6. Chemistries are noted. Microbiology is reviewed. ASSESSMENT AND PLAN: An 87-year-old male who was seen early this morning, status post fall with left arm laceration, kidney stones, ex-smoker, hypertension, will continue with local wound care, no evidence of infection in the arm. We will follow closely with you. Ed Griggs MD [facility] # [id number]
== END 2018-05-10 17:58 | DRG 605 ==
LOC: ED 16:20 → ERH 18:52 → 5RSO 21:01 → OBSVTOIN 05-07 09:58
PROVIDERS: ADMIT Family Medicine; ATTEND Family Medicine
PROC: 0HDCXZZ Extraction of Left Upper Arm Skin, External Approach (ICD-10-PCS; principal; 2018-05-10)
DX: S51.812A Laceration without foreign body of left forearm, initial encounter (principal); E87.1 Hypo-osmolality and hyponatremia; L03.114 Cellulitis of left upper limb; I10 Essential (primary) hypertension; R33.9 Retention of urine, unspecified; W19.XXXA Unspecified fall, initial encounter; Y92.002 Bathroom of unspecified non-institutional (private) residence as the place of occurrence of the external cause; Z79.899 Other long term (current) drug therapy; Z87.891 Personal history of nicotine dependence; Z87.442 Personal history of urinary calculi

== ENCOUNTER 2018-05-10 17:56 | Inpatient (IN) | payer OTHER ==
[2018-05-10 18:19] VITALS: BMI 18.8
[2018-05-11] MEDS: Sodium Chloride 0.9% 1,000 ML IV SCH ×3 (02:52→22:00)
--- NOTE | 2018-05-11 09:43 | HP ---
DATE OF EXAM: 05/11/2018 HISTORY OF PRESENT ILLNESS: I did a house call on Kyler, his left arm is completely soaked of bandages. He had 27 x 10 cm gash from a fall in the bathroom, I sent him to the emergency room. It would not stop bleeding at home. The bandages were not changed for a while and I sent to the emergency room, was put in for debridement of the wound with surgery and now he needs physical therapy and further wound care. There was also a suggestion of skin graft, he is not happy about that. For the most part, he is comfortable now in the TCU. He just got there. He has got hypertension. He has got chronic Ariza. He has had kidney stones. FAMILY HISTORY: Unknown family history. SOCIAL HISTORY: Former smoker. No alcohol. No drugs. No drinking. ALLERGIES: NO KNOWN DRUG ALLERGIES. MEDICATIONS: He is on atenolol and Norvasc. He walks very slowly with a walker. He is very weak. We tried doing physical therapy in the past, he refused. Now, he definitely needs it. He has weight loss since his . He is fatigued. The left arm is bandaged. No more bleeding which is good. He is little short of breath at times. No chest pain or palpitation. No abdominal pain. No nausea, vomiting, constipation, or diarrhea. No back pain or neck pain. The left arm has got a large skin tear 27 x 10. No headache, no dizziness. His head is atraumatic, normocephalic. He is comfortable now. He is weak. He understands he needs physical therapy. He is looking forward to it. Also, more skin care, left arm. He is not happy about getting a skin graft to or not. PHYSICAL EXAMINATION: HEENT: Head is atraumatic, normocephalic. Extraocular muscles are intact. Throat is moist. NECK: Supple. HEART: Regular rate. Normal S1, S2. LUNGS: Decreased breath sounds bilaterally but clear to auscultation. ABDOMEN: Soft, nontender. Positive bowel sounds. No guarding, no rebound, no CVA tenderness. EXTREMITIES: No edema. He can move all 4 extremities well but the left lower extremity, the legs and arms are weak. There is a large left arm wound that needs more healing. GCS is 15. NEUROLOGIC: Cranial nerves II-XII grossly intact. LYMPH: Thyroid midline. No palpable appreciable lymphadenopathy. No labs were done. We will order them tomorrow. We will continue with aggressive treatment and care. He is here for wound care, IV fluids and physical therapy. I will get some tramadol for the pain for his bad arthritis. He has had falls, left arm large avulsion and osteoarthritis. Zen Christensen DO MTDD
--- NOTE | 2018-05-11 10:44 | CP.PCM.CON ---
<Jesús Smith - Last Filed: 05/11/18 13:52> History of Present Illness - History of Present Illness History of Present Illness: 87 year old male with past medical history of HTN and Kidney stones presented to the hospital after falling at home. Patient states he had a mechanical fall at home in which he tripped and hit his arm on the sink. He suffered a cut to his left forearm. Patient subsequently came to the hospital for further management. Patient had wound dressings placed on his arm. No antibiotics were needed due to no infection of the arm. Patient was transferred to TCU for deconditioning. Denies chest pain, shortness of breath, nausea, vomiting, diarrhea, fever, chills. Medical Hx: As above Surgical Hx: Denies Family Hx: Denies Social Hx: Former smoker, denies alcohol or illicit drug use Allergies: NKDA Medications: Atenolol, amlodipine Review of Systems - Review of Systems Review of Systems: 12 point ROS as per HPI, otherwise negative Past Patient History - Past Social History Smoking Status: Never Smoked - CARDIAC Hx Hypertension: Yes - PULMONARY Hx Respiratory Disorders: No - NEUROLOGICAL Hx Neurological Disorder: No - HEENT Hx HEENT Problems: No - RENAL Hx Chronic Kidney Disease: Yes Hx Kidney Stones: Yes - ENDOCRINE/METABOLIC Hx Endocrine Disorders: No - HEMATOLOGICAL/ONCOLOGICAL Hx Blood Disorders: No - INTEGUMENTARY Hx Dermatological Problems: No - MUSCULOSKELETAL/RHEUMATOLOGICAL Hx Falls: No - GASTROINTESTINAL Hx Gastrointestinal Disorders: No - GENITOURINARY/GYNECOLOGICAL Hx Genitourinary Disorders: No - PSYCHIATRIC Hx Psychophysiologic Disorder: No - SURGICAL HISTORY Hx Surgeries: No Meds Allergies/Adverse Reactions: Allergies Allergy/AdvReac Type Severity Reaction Status Date / Time No Known Allergies Allergy Verified 05/06/18 16:30 - Medications Medications: Current Medications Acetaminophen (Tylenol 325mg Tab) 650 mg PO Q6H PRN; Protocol PRN Reason: Fever >100.4 F Acetaminophen (Tylenol 325mg Tab) 650 mg PO Q6H PRN PRN Reason: Pain, Mild (1-3) Last Admin: 05/11/18 03:55 Dose: 650 mg Amlodipine Besylate (Norvasc) 5 mg PO DAILY [facility]; Protocol Last Admin: 05/11/18 09:26 Dose: 5 mg Sodium Chloride (Sodium Chloride 0.9%) 1,000 mls @ 75 mls/hr IV .[id number] [facility]; Protocol Last Admin: 05/11/18 08:10 Dose: Not Given Silver Sulfadiazine (Silvadene 1% 25 Gm) 0 gm TP DAILY [facility]; Protocol Tramadol HCl (Ultram) 50 mg PO TID PRN PRN Reason: Pain, moderate (4-7) Last Admin: 05/11/18 09:25 Dose: 50 mg Physical Exam - Constitutional Appears: Non-toxic, No Acute Distress - Head Exam Head Exam: ATRAUMATIC, NORMAL INSPECTION, NORMOCEPHALIC - ENT Exam ENT Exam: Mucous Membranes Moist - Respiratory Exam Respiratory Exam: Clear to Auscultation Bilateral, NORMAL BREATHING PATTERN - Cardiovascular Exam Cardiovascular Exam: RRR, +S1, +S2 - GI/Abdominal Exam GI & Abdominal Exam: Normal Bowel Sounds, Soft. absent: Tenderness - Extremities Exam Extremities exam: Negative for: pedal edema Additional comments: Left forearm bandaged - Neurological Exam Neurological exam: Alert, CN II-XII Intact, Oriented x3 - Psychiatric Exam Psychiatric exam: Normal Affect, Normal Mood - Skin Skin Exam: Dry, Intact, Warm Results - Vital Signs Recent Vital Signs: Last Vital Signs Temp Pulse 67 05/11/18 09:26 Resp 18 05/10/18 19:55 BP 125/63 05/11/18 09:26 Pulse Ox Assessment & Plan - Assessment and Plan (Free Text) Plan: Left arm laceration Hx of HTN Hx of kidney stones Former smoker Plan Afebrile, no leukocytosis No indications for antibiotics Local wound care Continue current medical management Luis, PGY-3 <Miguel Douglas - Last Filed: 05/11/18 17:04> Meds - Medications Medications: Current Medications Acetaminophen (Tylenol 325mg Tab) 650 mg PO Q6H PRN; Protocol PRN Reason: Fever >100.4 F Acetaminophen (Tylenol 325mg Tab) 650 mg PO Q6H PRN PRN Reason: Pain, Mild (1-3) Last Admin: 05/11/18 03:55 Dose: 650 mg Amlodipine Besylate (Norvasc) 5 mg PO DAILY [facility]; Protocol Last Admin: 05/11/18 09:26 Dose: 5 mg Sodium Chloride (Sodium Chloride 0.9%) 1,000 mls @ 75 mls/hr IV .[id number] [facility]; Protocol Last Admin: 05/11/18 08:10 Dose: Not Given Silver Sulfadiazine (Silvadene 1% 25 Gm) 0 gm TP DAILY [facility]; Protocol Tramadol HCl (Ultram) 50 mg PO TID PRN PRN Reason: Pain, moderate (4-7) Last Admin: 05/11/18 09:25 Dose: 50 mg Results - Vital Signs Recent Vital Signs: Last Vital Signs Temp 99.8 F H 05/11/18 16:00 Pulse 72 05/11/18 16:00 Resp 18 05/11/18 16:00 BP 130/68 05/11/18 16:00 Pulse Ox 95 05/11/18 16:00 Assessment & Plan - Assessment and Plan (Free Text) Plan: Infectious diseases Attending Physician Attestation Patient seen and examined, discussed with medical referral coordinator. I have reviewed the patient's history of present illness, past medical, social, personal and family histories, pertinent physical exam findings, course so far in this hospital admission, pertinent laboratory and imaging results. I agree with the above findings, assessment and plan. In addition, continue to monitor off antibiotics - patient with left arm laceration without evidence of infection or cellulitis.
[2018-05-11] MEDS: Silver Sulfadiazine 1% Cream (25 gm) TP SCH (17:18)
[2018-05-12 07:30] LABS: HEMOGLOBIN 12.6 g/dL (14.0-18.0); MEAN CORPUSCULAR HEMOGLOBIN 30.7 pg (25.0-35.0); MEAN CORPUSCULAR HGB CONC 34.1 g/dl (31.0-37.0); MEAN PLATELET VOLUME 8.8 fl (7.0-11.0); RBC 4.1 10^6/uL (3.5-6.1); RED CELL DISTRIBUTION WIDTH 12.7 % (11.5-14.5); WHITE BLOOD COUNT 7.8 10^3/uL (4.5-11.0)
[2018-05-12 07:49] LABS: ALB/GLOB RATIO 0.9 (1.1-1.8); ALBUMIN 3.1 g/dL (3.0-4.8); ALT/SGPT 27 U/L (7-56); AST/SGOT 41 U/L (17-59); BLOOD UREA NITROGEN 12 mg/dL (7-21); CALCIUM 8.6 mg/dL (8.4-10.5); GFR NON-AFRICAN AMERICAN > 60
--- NOTE | 2018-05-12 09:57 | PN ---
DATE: 05/12/2018 SUBJECTIVE: He is in the TCU. He was doing well. He has a left arm bandaged. He was offered a skin graft, he tells me he is refusing the skin graft, he does not want it. He is on Norvasc, Silvadene cream, IV fluids, Tylenol and Ultram. He is eating well. PHYSICAL EXAMINATION: VITAL SIGNS: He has a 99.8 temperature, 87 pulse, 154/88 blood pressure, 18 respiratory rate and 95% O2 sat on room air. HEENT: Head is atraumatic and normocephalic. HEART: Regular rate. LUNGS: Decreased breath sounds, but clear. ABDOMEN: Soft. EXTREMITIES: No edema, left arm is bandaged. LABORATORY DATA: He has a 7.8 white count, 12.6 hemoglobin, 36.9 hematocrit with 288 platelets. A 131 sodium, potassium 4.2, BUN 12, creatinine 0.5, GFR is greater than 60, sugar is 86, calcium is 8.6, total bili is 0.8, AST is 41, ALT is 27, alk phos 96, total protein 6.5 and albumin 3.1. He is being seen by Infectious Disease at this time. He had left arm laceration. He is afebrile. No leukocytosis. We will keep an eye on him. He has physical therapy. He does not want a skin graft as offered by Surgery. We will watch his white count and hemoglobin and his temperature. Physical therapy get him walking and then home. Kyler Brunson, who had a very bad left arm skin avulsion from a fall needs physical therapy and wound care. Zen Christensen DO
[2018-05-12] MEDS: Silver Sulfadiazine 1% Cream (25 gm) TP SCH (10:10)
[2018-05-12] MEDS: Sodium Chloride 0.9% 1,000 ML IV SCH (11:59)
--- NOTE | 2018-05-12 19:21 | PN ---
DATE: 05/12/2018 SUBJECTIVE: The patient is in bed in no acute distress. PHYSICAL EXAMINATION: VITAL SIGNS: Temperature is 98, blood pressure is 120/60, respiratory rate of 18. HEENT: Unremarkable. NECK: Supple. HEART: Normal S1, S2. LUNGS: Have decreased breath sounds. ABDOMEN: Soft. LABORATORY DATA: Reveals a BUN of 12, creatinine 0.5. Microbiology is noted. ASSESSMENT AND PLAN: This is an 87-year-old male with hypertension, kidney stones, left arm laceration and former smoker. Currently, off antibiotics. Local wound care. We will follow with you. Ed Griggs MD
[2018-05-13] MEDS: Sodium Chloride 0.9% 1,000 ML IV SCH ×2 (03:01→15:55)
[2018-05-13 06:31] LABS: HEMOGLOBIN 11.3 g/dL (14.0-18.0); MEAN CELL VOLUME 91.1 fl (80.0-105.0); MEAN CORPUSCULAR HEMOGLOBIN 30.5 pg (25.0-35.0); MEAN CORPUSCULAR HGB CONC 33.4 g/dl (31.0-37.0); RBC 3.71 10^6/uL (3.5-6.1); RED CELL DISTRIBUTION WIDTH 12.8 % (11.5-14.5)
[2018-05-13 07:22] LABS: ALB/GLOB RATIO 0.9 (1.1-1.8); ALBUMIN 2.8 g/dL (3.0-4.8); ALT/SGPT 48 U/L (7-56); AST/SGOT 61 U/L (17-59); BLOOD UREA NITROGEN 15 mg/dL (7-21); CALCIUM 8.5 mg/dL (8.4-10.5); GFR NON-AFRICAN AMERICAN > 60
--- NOTE | 2018-05-13 07:47 | CP.PCM.PN ---
Subjective - Date & Time of Evaluation Date of Evaluation: 05/13/18 Time of Evaluation: 07:44 - Subjective Subjective: Yair Franco, PGY1 Surgery Progress Note for Dr. Patel Patient was seen and examined at bedside in the TCU. Vital signs stable. Left forearm optifoam dressing was changed. Patient does not complain of pain at this time. He is tolerating therapy well. No adverse overnight events. He was explained the purposes of a skin graft in regards to healing. Objective - Vital Signs/Intake and Output Vital Signs (last 24 hours): Temp Pulse Resp BP Pulse Ox 97.8 F 67 18 126/65 97 05/12/18 16:00 05/12/18 16:00 05/12/18 16:00 05/12/18 16:00 05/12/18 16:00 - Medications Medications: Current Medications Acetaminophen (Tylenol 325mg Tab) 650 mg PO Q6H PRN; Protocol PRN Reason: Fever >100.4 F Acetaminophen (Tylenol 325mg Tab) 650 mg PO Q6H PRN PRN Reason: Pain, Mild (1-3) Last Admin: 05/12/18 21:27 Dose: 650 mg Amlodipine Besylate (Norvasc) 5 mg PO DAILY NAY; Protocol Last Admin: 05/12/18 10:10 Dose: Not Given Sodium Chloride (Sodium Chloride 0.9%) 1,000 mls @ 75 mls/hr IV .[id number] NAY; Protocol Last Admin: 05/13/18 03:01 Dose: 75 mls/hr Silver Sulfadiazine (Silvadene 1% 25 Gm) 0 gm TP DAILY NAY; Protocol Last Admin: 05/12/18 10:10 Dose: 25 gm Tramadol HCl (Ultram) 50 mg PO TID PRN PRN Reason: Pain, moderate (4-7) Last Admin: 05/13/18 06:04 Dose: 50 mg - Labs Labs: 05/13/18 06:00 05/13/18 06:00 - Constitutional Appears: No Acute Distress - Head Exam Head Exam: ATRAUMATIC, NORMAL INSPECTION, NORMOCEPHALIC - ENT Exam ENT Exam: Mucous Membranes Moist - Respiratory Exam Respiratory Exam: Clear to Ausculation Bilateral. absent: Rales, Rhonchi, Wheezes - Cardiovascular Exam Cardiovascular Exam: RRR, +S1, +S2 - GI/Abdominal Exam GI & Abdominal Exam: Soft, Normal Bowel Sounds. absent: Guarding, Rigid, Tenderness, Rebound - Extremities Exam Extremities Exam: Full ROM Additional comments: Skin tear at the dorsal aspect of the left forearm, approximately 15cm x 15cm. Silvadene with optifoam dressing is in place. No drainage. Skin tear is healing well. No signs of infection or drainage. Distal and motor pulses in extremities intact. - Neurological Exam Neurological Exam: Alert, Awake, Oriented x3 - Psychiatric Exam Psychiatric exam: Normal Affect, Normal Mood - Skin Skin Exam: Dry, Intact, Normal Color, Warm Assessment and Plan - Assessment and Plan (Free Text) Assessment: 87 y/o M with left forearm skin tear Plan: - c/w silvadene and optifoam dressing - We will continue to monitor patient in the TCU - c/w recs as per primary team - Please see further recs as per Dr. Patel
--- NOTE | 2018-05-13 08:31 | PN ---
DATE: 05/13/2018 SUBJECTIVE: The patient is seen earlier this morning in no acute distress, nontoxic. No fevers and chills. OBJECTIVE: VITAL SIGNS: Temperature is 98, blood pressure is 126/60, respiratory rate of 18. HEENT: Unremarkable. NECK: Supple. LUNGS: Have decreased breath sounds. HEART: Normal S1, S2. ABDOMEN: Soft. LABORATORY EXAMINATION: Reveals a white count of 6 and chemistries are noted. Review of orders reveals the patient to be off of antibiotics. ASSESSMENT AND PLAN: An 87-year-old male with hypertension, kidney stones, left arm laceration, former smoker, currently off of antibiotics, afebrile. The patient is at risk for developing nosocomial infections. Ed Griggs MD
[2018-05-13] MEDS: Silver Sulfadiazine 1% Cream (25 gm) TP SCH (09:46)
--- NOTE | 2018-05-13 14:19 | PN ---
DATE: 05/13/2018 SUBJECTIVE: I saw him in the Transitional Care Unit. He is comfortable. He has got his left arm bandaged. His biggest concern right now is when he goes home, his son will come to the house and change his bandaging for him. He is on Norvasc, Silvadene cream, IV fluids, Tylenol, and Ultram. He is comfortable. He is eating, he is walking with physical therapy. PHYSICAL EXAMINATION: VITAL SIGNS: 97.8 temperature, 67 pulse, 126/65 blood pressure, 18 respiratory rate, 97% O2 sat. HEAD: Atraumatic, normocephalic. HEART: Regular rate. LUNGS: Clear to auscultation. ABDOMEN: Soft. EXTREMITIES: No edema. The left arm is bandaged. He has a Ariza catheter in place. LABORATORY DATA: He has a 6 white count, 11.3 hemoglobin, 32.8 hematocrit, 273 platelets. 132 sodium, potassium 4, BUN 50, creatinine 0.6, GFR is greater than 60, sugar is 92, calcium 8.5, total bili is 0.5, AST is 61, ALT is 40, alk phos 98, total protein 5.9. ASSESSMENT: He is doing quite well. We will continue with care of the left arm, physical therapy. He has hypertension, kidney stone, left arm lacerations, former smoker. We will keep a close eye on him until he goes home. . Zen Christensen DO MTDChepe
[2018-05-14] MEDS: Sodium Chloride 0.9% 1,000 ML IV SCH ×2 (05:35→17:31)
[2018-05-14] MEDS: Silver Sulfadiazine 1% Cream (25 gm) TP SCH (09:16)
--- NOTE | 2018-05-14 11:38 | PN ---
DATE: 05/14/2018 SUBJECTIVE: He is resting comfortably in bed. He is walking better. He is feeling better. The left arm wound is also improved, it is covered, it is bandaged, and it is not bleeding. MEDICATIONS: He is on Norvasc, Silvadene cream, IV fluids, Tylenol, and Ultram. PHYSICAL EXAMINATION: VITAL SIGNS: 98.5 temperature, 63 pulse, 126/60 blood pressure, 18 respiratory rate, 90% O2 sat. HEAD: Atraumatic, normocephalic. HEART: Regular rate. LUNGS: Decreased breath sounds, but clear. ABDOMEN: Soft. EXTREMITIES: No edema. The left arm is bandaged from a big avulsion scrape. LABORATORY DATA: He has 6 white count, 11.3 hemoglobin, 33.8 hematocrit with 273 platelets. He has 132 sodium, potassium is 4, BUN 50, creatinine 0.6, GFR is greater than 60, sugar is 92, calcium is 8.5, total bili is 0.5. AST is 61, ALT is 48, alk phos 98, total protein is 5.9. He has Pseudomonas aeruginosa in the urine culture, which is new. ASSESSMENT AND PLAN: I will consult Dr. Griggs, Infectious Disease and for antibiotics. We will check his labs tomorrow and we will continue with our aggressive treatment and care on Kyler Brunson. He has got four more days in transitional care unit before he goes home. Zen Christensen DO
[2018-05-14 14:29] LABS: URINE BILIRUBIN NEGATIVE (NEGATIVE); URINE BLOOD TRACE-LYSED (NEGATIVE); URINE GLUCOSE (UA) NEGATIVE (NEGATIVE); URINE LEUKOCYTE ESTERASE MODERATE Leu/uL (NEGATIVE); URINE PROTEIN NEGATIVE mg/dL (<30 mg/dL); URINE UROBILINOGEN 0.2 E.U./dL (<1 E.U./dL)
[2018-05-14 14:30] LABS: URINE APPEARANCE CLEAR (CLEAR); URINE COLOR YELLOW (YELLOW)
[2018-05-14 14:34] LABS: URINE BACTERIA MOD /hpf; URINE WBC 20 - 25 /hpf (0-6)
--- NOTE | 2018-05-14 17:13 | PN ---
DATE: 05/14/2018 SUBJECTIVE: The patient is in bed, in no acute distress, nontoxic. PHYSICAL EXAMINATION: GENERAL: On exam, patient is in bed, answering questions. VITAL SIGNS: Temperature of 98, blood pressure is 120/80, respiratory rate is 15, heart rate of 82. HEENT: Examination of HEENT is unremarkable. NECK: Supple. LUNGS: Have decreased breath sounds. HEART: Normal S1, S2. ABDOMEN: Soft, nontender. The patient does have a Ariza catheter. LABORATORY DATA: Urine culture is positive for Pseudomonas aeruginosa. ASSESSMENT AND PLAN: This is a 87-year-old male with hypertension, kidney stones, left arm laceration, former smoking, now with Pseudomonas aeruginosa in urine culture, although he does have a Ariza catheter at this time. We will repeat the urinalysis and urine culture and ideally should have the Ariza out if possible and we will make further recommendations. Ed Griggs MD
[2018-05-15] MEDS: Sodium Chloride 0.9% 1,000 ML IV SCH (05:46)
[2018-05-15 07:05] LABS: MEAN CELL VOLUME 91.8 fl (80.0-105.0); MEAN CORPUSCULAR HEMOGLOBIN 29.9 pg (25.0-35.0); MEAN CORPUSCULAR HGB CONC 32.5 g/dl (31.0-37.0); MEAN PLATELET VOLUME 8.9 fl (7.0-11.0); RBC 3.68 10^6/uL (3.5-6.1); RED CELL DISTRIBUTION WIDTH 12.8 % (11.5-14.5)
[2018-05-15 07:39] LABS: ALB/GLOB RATIO 0.8 (1.1-1.8); ALBUMIN 2.7 g/dL (3.0-4.8); ALT/SGPT 47 U/L (7-56); AST/SGOT 56 U/L (17-59); BLOOD UREA NITROGEN 16 mg/dL (7-21); CALCIUM 8.4 mg/dL (8.4-10.5); GFR NON-AFRICAN AMERICAN > 60
[2018-05-15] MEDS: Silver Sulfadiazine 1% Cream (25 gm) TP SCH (10:10)
--- NOTE | 2018-05-15 12:05 | PN ---
DATE: 05/15/2018 SUBJECTIVE: He is resting comfortably in bed. His left arm is bandaged. He is walking better with physical therapy. He is in fairly good spirits. He is eating well. MEDICATIONS: He is on Norvasc, Silvadene, Tylenol, Ultram. PHYSICAL EXAMINATION: VITAL SIGNS: 97.9 temperature, 62 pulse, 126/64 blood pressure, 18 respiratory rate, 95% O2 sat on room air. HEENT: His head is atraumatic, normocephalic. Very alert and oriented. Throat is moist. NECK: Supple. HEART: Regular rate. LUNGS: Decreased breath sounds, but clear. Poor inspiration but no wheezes, rhonchi, or rales. ABDOMEN: Soft, nontender. Positive bowel sounds. He does have a Ariza catheter in place, draining nicely, clear yellow urine. EXTREMITIES: No edema. The left arm is bandaged where he had his large avulsion of the skin. LABORATORY DATA: He has 6 white count, 11 hemoglobin, 32.8 hematocrit with 338 platelets. He has 132 sodium, potassium 4.3, BUN 60, creatinine 0.74, GFR is greater than 60, sugar is 86, calcium is 8.4, total bili is 0.4. AST is 56, ALT is 47, alk phos 93, total protein is 5.8, is 3.1. Urine was moderate leukocytes, moderate bacteria. ASSESSMENT AND PLAN: I believe he was seen by the Infectious Disease doctor, Dr. Griggs, he did not put him on any antibiotics at this time. We are going to repeat the urinalysis as opposed to treating the Pseudomonas. We will see what happens in the next urinalysis and culture and sensitivity. He will continue with his physical therapy, skin care, getting out of bed to chair. We will follow. Zen Christensen DO MTDD
--- NOTE | 2018-05-15 12:12 | CP.PCM.CON ---
<Genia Rain - Last Filed: 05/15/18 12:14> History of Present Illness - History of Present Illness History of Present Illness: Podiatry consult note for Dr. Bird, 87 yr old male with PMH HTN who is admitted for large left distal posterior forearm skin tear after a fall in his bathroom this past friday. denies pain to his feet. States his toenails are very long and would like someone to debride them for him. Patient denies any other pedal complains. Denies seeing a shaping machine tender at home. Denies f/n/v/sob. Past Patient History - Past Social History Smoking Status: Never Smoked - CARDIAC Hx Hypertension: Yes - PULMONARY Hx Respiratory Disorders: No - NEUROLOGICAL Hx Neurological Disorder: No - HEENT Hx HEENT Problems: No - RENAL Hx Chronic Kidney Disease: Yes Hx Kidney Stones: Yes - ENDOCRINE/METABOLIC Hx Endocrine Disorders: No - HEMATOLOGICAL/ONCOLOGICAL Hx Blood Disorders: No - INTEGUMENTARY Hx Dermatological Problems: No - MUSCULOSKELETAL/RHEUMATOLOGICAL Hx Falls: No - GASTROINTESTINAL Hx Gastrointestinal Disorders: No - GENITOURINARY/GYNECOLOGICAL Hx Genitourinary Disorders: No - PSYCHIATRIC Hx Psychophysiologic Disorder: No - SURGICAL HISTORY Hx Surgeries: No Meds Allergies/Adverse Reactions: Allergies Allergy/AdvReac Type Severity Reaction Status Date / Time No Known Allergies Allergy Verified 05/15/18 06:03 - Medications Medications: Current Medications Acetaminophen (Tylenol 325mg Tab) 650 mg PO Q6H PRN; Protocol PRN Reason: Fever >100.4 F Acetaminophen (Tylenol 325mg Tab) 650 mg PO Q6H PRN PRN Reason: Pain, Mild (1-3) Last Admin: 05/12/18 21:27 Dose: 650 mg Amlodipine Besylate (Norvasc) 5 mg PO DAILY NAY; Protocol Last Admin: 05/15/18 10:09 Dose: 5 mg Silver Sulfadiazine (Silvadene 1% 25 Gm) 0 gm TP DAILY NAY; Protocol Last Admin: 05/15/18 10:10 Dose: 25 gm Tramadol HCl (Ultram) 50 mg PO TID PRN PRN Reason: Pain, moderate (4-7) Last Admin: 05/14/18 05:35 Dose: 50 mg Physical Exam - Constitutional Appears: Well, Non-toxic, No Acute Distress - Head Exam Head Exam: ATRAUMATIC, NORMOCEPHALIC - Eye Exam Pupil Exam: NORMAL ACCOMODATION - ENT Exam ENT Exam: Normal Exam - Extremities Exam Additional comments: B/l lower extremity exam: vascular: DP/PT 2/4, CFT <3 secs x 10, tg warm to warm WNL, no edema or erythema noted in the foot or leg derm: no open lesions, no clinical signs of infection, elongated toenails x 10 ortho: pain with palpation of the long toenails neuro: protective sensation diminished via ipswich b/l Results - Vital Signs Recent Vital Signs: Last Vital Signs Temp 97.9 F 05/14/18 16:00 Pulse 74 05/15/18 10:09 Resp 18 05/14/18 16:00 BP 131/72 05/15/18 10:09 Pulse Ox 95 05/14/18 16:00 - Labs Result Diagrams: 05/15/18 06:30 05/15/18 06:30 Labs: Laboratory Results - last 24 hr 05/14/18 05/15/18 05/15/18 14:15 06:30 06:30 WBC 6.0 RBC 3.68 Hgb 11.0 L Hct 33.8 L MCV 91.8 MCH 29.9 MCHC 32.5 RDW 12.8 Plt Count 338 MPV 8.9 Sodium 132 Potassium 4.3 Chloride 102 Carbon Dioxide 27 Anion Gap 7 L BUN 16 Creatinine 0.7 L Est GFR ( Amer) > 60 Est GFR (Non-Af Amer) > 60 Random Glucose 86 Calcium 8.4 Total Bilirubin 0.4 AST 56 ALT 47 Alkaline Phosphatase 93 Total Protein 5.8 Albumin 2.7 L Globulin 3.1 Albumin/Globulin Ratio 0.8 L Urine Color Yellow Urine Appearance Clear Urine pH 7.0 Ur Specific Evans 1.010 Urine Protein Negative Urine Glucose (UA) Negative Urine Ketones Negative Urine Blood Trace-lysed H Urine Nitrate Positive H Urine Bilirubin Negative Urine Urobilinogen 0.2 Ur Leukocyte Esterase Moderate H Urine RBC 2 - 5 H Urine WBC 20 - 25 H Ur Epithelial Cells None Urine Bacteria Mod Assessment & Plan - Assessment and Plan (Free Text) Assessment: 87 yo male seen and evaluated for elongated toenails x 10. Plan: Patient seen and evaluated chart, labs and vitals reviewed Nails debrided using a sterile nail nipper x10 No complications. Podiatry will now sign off; please reconsult if needed. thank you for the consult <Mitch Bird - Last Filed: 05/15/18 17:43> Meds - Medications Medications: Current Medications Acetaminophen (Tylenol 325mg Tab) 650 mg PO Q6H PRN; Protocol PRN Reason: Fever >100.4 F Acetaminophen (Tylenol 325mg Tab) 650 mg PO Q6H PRN PRN Reason: Pain, Mild (1-3) Last Admin: 05/12/18 21:27 Dose: 650 mg Amlodipine Besylate (Norvasc) 5 mg PO DAILY NAY; Protocol Last Admin: 05/15/18 10:09 Dose: 5 mg Silver Sulfadiazine (Silvadene 1% 25 Gm) 0 gm TP DAILY NAY; Protocol Last Admin: 05/15/18 10:10 Dose: 25 gm Tramadol HCl (Ultram) 50 mg PO TID PRN PRN Reason: Pain, moderate (4-7) Last Admin: 05/14/18 05:35 Dose: 50 mg Results - Vital Signs Recent Vital Signs: Last Vital Signs Temp 98.3 F 05/15/18 16:00 Pulse 69 05/15/18 16:00 Resp 18 05/15/18 16:00 BP 139/65 05/15/18 16:00 Pulse Ox 97 05/15/18 16:00 - Labs Result Diagrams: 05/15/18 06:30 05/15/18 06:30 Labs: Laboratory Results - last 24 hr 05/15/18 05/15/18 06:30 06:30 WBC 6.0 RBC 3.68 Hgb 11.0 L Hct 33.8 L MCV 91.8 MCH 29.9 MCHC 32.5 RDW 12.8 Plt Count 338 MPV 8.9 Sodium 132 Potassium 4.3 Chloride 102 Carbon Dioxide 27 Anion Gap 7 L BUN 16 Creatinine 0.7 L Est GFR ( Amer) > 60 Est GFR (Non-Af Amer) > 60 Random Glucose 86 Calcium 8.4 Total Bilirubin 0.4 AST 56 ALT 47 Alkaline Phosphatase 93 Total Protein 5.8 Albumin 2.7 L Globulin 3.1 Albumin/Globulin Ratio 0.8 L Attending/Attestation - Attestation I have personally seen and examined this patient.: Yes I have fully participated in the care of the patient.: Yes I have reviewed all pertinent clinical information: Yes
--- NOTE | 2018-05-15 15:36 | CP.PCM.PN ---
<Jesús Smith - Last Filed: 05/15/18 15:33> Subjective - Date & Time of Evaluation Date of Evaluation: 05/15/18 Time of Evaluation: 07:45 - Subjective Subjective: ID Progress Note Patient seen and examined at bedside. Patient with no complaints. Patient does have a urinary catheter in place. Patient with no abdominal pain, dysuria, or increased urinary frequency. Objective - Vital Signs/Intake and Output Vital Signs (last 24 hours): Temp Pulse Resp BP Pulse Ox 97.9 F 74 18 131/72 95 05/14/18 16:00 05/15/18 10:09 05/14/18 16:00 05/15/18 10:09 05/14/18 16:00 - Medications Medications: Current Medications Acetaminophen (Tylenol 325mg Tab) 650 mg PO Q6H PRN; Protocol PRN Reason: Fever >100.4 F Acetaminophen (Tylenol 325mg Tab) 650 mg PO Q6H PRN PRN Reason: Pain, Mild (1-3) Last Admin: 05/12/18 21:27 Dose: 650 mg Amlodipine Besylate (Norvasc) 5 mg PO DAILY NAY; Protocol Last Admin: 05/15/18 10:09 Dose: 5 mg Silver Sulfadiazine (Silvadene 1% 25 Gm) 0 gm TP DAILY NAY; Protocol Last Admin: 05/15/18 10:10 Dose: 25 gm Tramadol HCl (Ultram) 50 mg PO TID PRN PRN Reason: Pain, moderate (4-7) Last Admin: 05/14/18 05:35 Dose: 50 mg - Labs Labs: 05/15/18 06:30 05/15/18 06:30 - Constitutional Appears: Non-toxic, No Acute Distress - Head Exam Head Exam: ATRAUMATIC, NORMAL INSPECTION, NORMOCEPHALIC - Respiratory Exam Respiratory Exam: Clear to Ausculation Bilateral, NORMAL BREATHING PATTERN - Cardiovascular Exam Cardiovascular Exam: RRR, +S1, +S2 - GI/Abdominal Exam GI & Abdominal Exam: Guarding, Soft, Normal Bowel Sounds. absent: Tenderness - Extremities Exam Additional comments: Left arm with bandage on forearm. Dry, no drainage - Neurological Exam Neurological Exam: Alert, Awake, Oriented x3 - Psychiatric Exam Psychiatric exam: Normal Affect, Normal Mood - Skin Skin Exam: Intact, Normal Color, Warm Assessment and Plan - Assessment and Plan (Free Text) Plan: Left arm laceration Hx of HTN Hx of kidney stones Former smoker Plan Afebrile, no leukocytosis Urine culture with Pseudomonas, likely secondary to colonization Exchange sommers, if possible Local wound care Continue current medical management Luis, PGY-3 <Jose Rafael Douglasd Mitch Bassett - Last Filed: 05/15/18 15:57> Objective - Vital Signs/Intake and Output Vital Signs (last 24 hours): Temp Pulse Resp BP Pulse Ox 97.9 F 74 18 131/72 95 05/14/18 16:00 05/15/18 10:09 05/14/18 16:00 05/15/18 10:09 05/14/18 16:00 - Medications Medications: Current Medications Acetaminophen (Tylenol 325mg Tab) 650 mg PO Q6H PRN; Protocol PRN Reason: Fever >100.4 F Acetaminophen (Tylenol 325mg Tab) 650 mg PO Q6H PRN PRN Reason: Pain, Mild (1-3) Last Admin: 05/12/18 21:27 Dose: 650 mg Amlodipine Besylate (Norvasc) 5 mg PO DAILY NAY; Protocol Last Admin: 05/15/18 10:09 Dose: 5 mg Silver Sulfadiazine (Silvadene 1% 25 Gm) 0 gm TP DAILY NAY; Protocol Last Admin: 05/15/18 10:10 Dose: 25 gm Tramadol HCl (Ultram) 50 mg PO TID PRN PRN Reason: Pain, moderate (4-7) Last Admin: 05/14/18 05:35 Dose: 50 mg - Labs Labs: 05/15/18 06:30 05/15/18 06:30 Assessment and Plan - Assessment and Plan (Free Text) Plan: Infectious diseases Attending Physician Attestation Patient seen and examined, discussed with biomedical photographer. I have reviewed the patient's history of present illness, past medical, social, personal and family histories, pertinent physical exam findings, course so far in this hospital admission, pertinent laboratory and imaging results. I agree with the above findings, assessment and plan. In addition, continue to monitor off antibiotics - Pseudomonas in the urine is probably colonization ( no fever, no leukocytosis, chronic Sommers use). Recommend removal of Sommers if not needed.
[2018-05-16 07:26] LABS: HEMOGLOBIN 12.3 g/dL (14.0-18.0); MEAN CELL VOLUME 90.6 fl (80.0-105.0); MEAN CORPUSCULAR HEMOGLOBIN 30.4 pg (25.0-35.0); MEAN CORPUSCULAR HGB CONC 33.5 g/dl (31.0-37.0); MEAN PLATELET VOLUME 8.7 fl (7.0-11.0); RBC 4.05 10^6/uL (3.5-6.1); RED CELL DISTRIBUTION WIDTH 12.6 % (11.5-14.5); WHITE BLOOD COUNT 5.4 10^3/uL (4.5-11.0)
[2018-05-16 08:01] LABS: ALB/GLOB RATIO 0.9 (1.1-1.8); ALT/SGPT 50 U/L (7-56); AST/SGOT 63 U/L (17-59); BLOOD UREA NITROGEN 15 mg/dL (7-21); CALCIUM 8.7 mg/dL (8.4-10.5); GFR NON-AFRICAN AMERICAN > 60
[2018-05-16] MEDS: Silver Sulfadiazine 1% Cream (25 gm) TP SCH (09:45)
--- NOTE | 2018-05-16 10:32 | PN ---
DATE: 05/16/2018 SUBJECTIVE: I saw him resting comfortably in bed. He is definitely preoccupied about when he goes home and care he is going to get when he goes home about the left arm. He tells me he cannot change his dressing on the left arm nor could his son. He is improving. He is feeling better. He is walking better. He is eating well. He is on Norvasc, Silvadene cream, Tylenol and Ultram. PHYSICAL EXAMINATION: VITAL SIGNS: He has a 98.3 temperature, 69 pulse, 139/65 blood pressure, 18 respiratory rate, 97% O2 sat. HEENT: Head is atraumatic, normocephalic. Throat is moist. NECK: Supple. HEART: Regular rate. LUNGS: Decreased breath sounds but clear. ABDOMEN: Soft. EXTREMITIES: No edema. Left arm is bandaged from the skin avulsion. He has got a Ariza catheter in place. LABORATORY DATA: He has a 5.4 white count, 12.3 hemoglobin, 36.7 hematocrit with 354 platelets. Sodium 131, potassium 4.2, BUN 50, creatinine 0.6, GFR is greater than 60, sugar is 88, calcium is 8.7, total bili is 0.5. AST is 63, ALT is 50, alk phos 110, total protein 6.4, albumin is 3. Urine was moderate. RECOMMENDATIONS: He is being seen by Infectious Disease, Surgery, Urology, Podiatry. He is on amlodipine, Silvadene cream, Tylenol, Ultram as needed. I am going to repeat another urinalysis and hopefully, he will continue to improve with his walking and get steadier. We will follow tomorrow. He is here for left arm skin avulsion and weakness with walking and gait dysfunction that is why he is in the TCU. Zen Christensen DO
[2018-05-16 17:10] VITALS: RESP 14
--- NOTE | 2018-05-16 22:12 | PN ---
DATE: 05/16/2018 SUBJECTIVE: The patient is in bed, in no acute distress, nontoxic. OBJECTIVE: VITAL SIGNS: On exam, temperature is 98, blood pressure is 120/50, respiratory rate of 18, heart rate of 64. HEENT: Unremarkable. NECK: Supple. LUNGS: Have decreased breath sounds. HEART: Normal S1, S2. ABDOMEN: Soft, nontender. LABORATORY EXAMINATION: Reveals a white count of 5.4, hemoglobin of 12. Urinalysis is noted. Microbiology is noted with urine culture is Pseudomonas. Review of orders reveals the patient to be off antibiotics. ASSESSMENT AND PLAN: This is an 87-year-old male seen earlier this morning who was admitted with left arm laceration after a fall with hypertension, kidney stones, former smoker, currently off antibiotics, afebrile. We will follow with you. Ed Griggs MD
[2018-05-17] MEDS: Silver Sulfadiazine 1% Cream (25 gm) TP SCH (11:03)
--- NOTE | 2018-05-17 11:33 | PN ---
DATE: 05/17/2018 SUBJECTIVE: The patient is in bed in no acute distress. PHYSICAL EXAMINATION: VITAL SIGNS: Temperature of 98, blood pressure is 120/70, respiratory rate of 16. HEENT: Unremarkable. NECK: Supple. LUNGS: Have decreased breath sounds. HEART: Normal S1, S2. ABDOMEN: Soft. LABORATORY EXAMINATION: Reveals a white count of 5.4 and urinalysis is noted. The patient has used Pseudomonas in the urine culture and the patient's review of orders reveals the patient to be off of antibiotics. ASSESSMENT AND PLAN: This is an 87-year-old male who was seen earlier today in room 322 is awake and is doing well. He was admitted after a fall with laceration of the left arm. History of hypertension, kidney stones and former smoker with asymptomatic bacteriuria with Pseudomonas in the urine culture with no symptoms, currently off of antibiotics and the patient does have a Ariza catheter. Ed Griggs MD
--- NOTE | 2018-05-17 14:40 | PN ---
DATE: 05/17/2018 SUBJECTIVE: I saw Kyler in the transitional care unit. He is resting comfortably in bed. He is participating well with physical therapy. He is walking better, much more stable. He is eating well. His left arm laceration is also bandaged and looking well, not bleeding. MEDICATIONS: He is on Norvasc, silver sulfadiazine cream, Tylenol, and Ultram p.r.n. PHYSICAL EXAMINATION: GENERAL: He is alert and comfortable, no pain. He knows he is going home tomorrow, looking forward to it. VITAL SIGNS: He has 98.4 temperature, 64 pulse, 147/82 blood pressure, 14 respiratory rate, 98% O2 sat on room air. HEAD: Atraumatic, normocephalic. HEART: Regular rate. LUNGS: Decreased breath sounds, but clear. ABDOMEN: Soft. EXTREMITIES: No edema. ASSESSMENT AND PLAN: He still has a Ariza catheter in for his urinary retention, seen by urologist. He has the left arm bandaged from a severe large laceration from the fall at home in the bathroom. Last blood test on 05/16/2018, he did very well. He understands the situation. He was seen by Infectious Disease. We will continue with our treatment and physical therapy. Plan is to be discharged tomorrow to home with home visiting nurses. We will follow him on the outpatient on house calls. Zen Christensen DO MTDD
[2018-05-17 16:37] VITALS: TEMP 98; O2SAT 93
[2018-05-18 06:38] LABS: HEMOGLOBIN 11.6 g/dL (14.0-18.0); MEAN CELL VOLUME 92.7 fl (80.0-105.0); MEAN CORPUSCULAR HEMOGLOBIN 30.3 pg (25.0-35.0); MEAN CORPUSCULAR HGB CONC 32.7 g/dl (31.0-37.0); MEAN PLATELET VOLUME 8.8 fl (7.0-11.0); RBC 3.83 10^6/uL (3.5-6.1); RED CELL DISTRIBUTION WIDTH 12.8 % (11.5-14.5); WHITE BLOOD COUNT 6.8 10^3/uL (4.5-11.0)
[2018-05-18 07:15] LABS: ALB/GLOB RATIO 0.9 (1.1-1.8); ALT/SGPT 52 U/L (7-56); AST/SGOT 64 U/L (17-59); BLOOD UREA NITROGEN 21 mg/dL (7-21); CALCIUM 8.8 mg/dL (8.4-10.5); GFR NON-AFRICAN AMERICAN > 60
--- NOTE | 2018-05-18 09:33 | PCM.URO ---
Urology Progress Note - Subjective Hematuria: Yes (plans for out pt tumt in the office ppossibly this friday if pt can arrange) Urinary Urgency: Yes (id pt can arrange for tranpsortation ) - Objective Lab Results Last 24 Hours: Laboratory Results - last 24 hr 05/18/18 05/18/18 06:20 06:20 WBC 6.8 D RBC 3.83 Hgb 11.6 L Hct 35.5 L MCV 92.7 MCH 30.3 MCHC 32.7 RDW 12.8 Plt Count 367 MPV 8.8 Sodium 133 Potassium 4.8 Chloride 102 Carbon Dioxide 28 Anion Gap 8 L BUN 21 Creatinine 0.7 L Est GFR ( Amer) > 60 Est GFR (Non-Af Amer) > 60 Random Glucose 92 Calcium 8.8 Total Bilirubin 0.4 AST 64 H ALT 52 Alkaline Phosphatase 102 Total Protein 6.2 Albumin 3.0 Globulin 3.2 Albumin/Globulin Ratio 0.9 L Intake & Output: Intake & Output 05/17/18 05/18/18 05/18/18 18:59 06:59 18:59 Output Total 900 Balance -900 Output: Urine 900 Urethral (Ariza) 900 Vital Signs: Vital Signs - 24 hr 05/17/18 05/17/18 05/17/18 10:00 11:03 16:00 Temperature 97.9 F 98 F Pulse Rate 58 L 55 L Respiratory 14 14 Rate Blood Pressure 129/53 L 147/82 121/61 O2 Sat by Pulse 99 93 L Oximetry
--- NOTE | 2018-05-18 09:38 | DS ---
HISTORY OF PRESENT ILLNESS: He is doing quite well this morning. He is going to have his catheter changed with urologist this morning. He is going to be going home today. He has a left arm avulsion skin laceration which is improving nicely is covered. His biggest concern is that somebody comes and changes the bandages, it is changed already today. I will be seeing him on Friday. We will get home visiting nurses to come and help him do that. He is eating well, walking a little bit with the walker better. PHYSICAL EXAMINATION: VITAL SIGNS: 98 temperature, 55 pulse, 121/61 blood pressure, 14 respiratory rate, 93% O2 sat to 99% O2 sat on room air. HEENT: Head: Atraumatic, normocephalic. HEART: Regular rate. LUNGS: Clear to auscultation. ABDOMEN: Soft. EXTREMITIES: No edema. Left arm has got a bandage over large avulsion scrape from a fall. LABORATORY DATA: 6.8 white count, 11.6 hemoglobin, 35.5 hematocrit with 367 platelets. 133 sodium, potassium 4.8, BUN 21, creatinine 0.7, GFR is greater than 60, sugar is 92, calcium is 8.8, total bili is 0.4. AST is 64, ALT is 52, alk phos 102, total protein is 6.2. He did very well. He was seen by Infectious Disease. He is currently going to go home on his Norvasc, Silvadene cream and maybe some tramadol for pain versus Tylenol. He did well, will be seen on house call on Friday. Zen Christensen DO
[2018-05-18] MEDS: Silver Sulfadiazine 1% Cream (25 gm) TP SCH (10:08)
[2018-05-18 10:10] VITALS: BP 114/55; PULSE 67
--- NOTE | 2018-05-18 13:41 | CP.PCM.PN ---
Subjective - Date & Time of Evaluation Date of Evaluation: 05/18/18 Time of Evaluation: 07:45 - Subjective Subjective: ID Progress Note Patient seen and examined. No acute events overnight. Denies chest pain, shortness of breath, nausea, vomiting, diarrhea, fever, chills. Objective - Vital Signs/Intake and Output Vital Signs (last 24 hours): Temp Pulse Resp BP Pulse Ox 98 F 67 14 114/55 L 93 L 05/17/18 16:00 05/18/18 10:07 05/17/18 16:00 05/18/18 10:07 05/17/18 16:00 - Medications Medications: Current Medications Acetaminophen (Tylenol 325mg Tab) 650 mg PO Q6H PRN; Protocol PRN Reason: Fever >100.4 F Acetaminophen (Tylenol 325mg Tab) 650 mg PO Q6H PRN PRN Reason: Pain, Mild (1-3) Last Admin: 05/12/18 21:27 Dose: 650 mg Amlodipine Besylate (Norvasc) 5 mg PO DAILY NAY; Protocol Last Admin: 05/18/18 10:07 Dose: Not Given Silver Sulfadiazine (Silvadene 1% 25 Gm) 0 gm TP DAILY NAY; Protocol Last Admin: 05/18/18 10:08 Dose: 25 gm Tramadol HCl (Ultram) 50 mg PO TID PRN PRN Reason: Pain, moderate (4-7) Last Admin: 05/18/18 02:23 Dose: 50 mg - Labs Labs: 05/18/18 06:20 05/18/18 06:20 - Constitutional Appears: Non-toxic, No Acute Distress - ENT Exam ENT Exam: Mucous Membranes Moist, Normal Exam - Respiratory Exam Respiratory Exam: Clear to Ausculation Bilateral, NORMAL BREATHING PATTERN - Cardiovascular Exam Cardiovascular Exam: RRR, +S1, +S2 - GI/Abdominal Exam GI & Abdominal Exam: Soft, Normal Bowel Sounds. absent: Tenderness - Extremities Exam Additional comments: Left forearm bandaged - Neurological Exam Neurological Exam: Alert, Awake, Oriented x3 - Psychiatric Exam Psychiatric exam: Normal Affect, Normal Mood - Skin Skin Exam: Intact, Normal Color, Warm Assessment and Plan - Assessment and Plan (Free Text) Plan: Left arm laceration Hx of HTN Hx of kidney stones Former smoker Plan Afebrile, no leukocytosis Urine culture with Pseudomonas, secondary to colonization Will monitor off antibiotics Local wound care Continue current medical management Luis, PGY-3
== END 2018-05-18 14:14 | disposition home or self-care (01) | DRG 946 ==
LOC: TRCU 17:56
PROVIDERS: ADMIT Family Medicine; ATTEND Family Medicine
PROC: F07Z9FZ Gait Training/Functional Ambulation Treatment using Assistive, Adaptive, Supportive or Protective Equipment (ICD-10-PCS; principal; 2018-05-11)
PROC: F08Z4FZ Home Management Treatment using Assistive, Adaptive, Supportive or Protective Equipment (ICD-10-PCS; 2018-05-11)
DX: S51.812D Laceration without foreign body of left forearm, subsequent encounter (principal); R33.9 Retention of urine, unspecified; I10 Essential (primary) hypertension; W19.XXXD Unspecified fall, subsequent encounter; Z87.442 Personal history of urinary calculi; Z87.891 Personal history of nicotine dependence